=== PATIENT | female | born 1985 | race Caucasian/White ===

== ENCOUNTER 2017-08-11 21:10 | Outpatient (CLI) | payer OTHER ==
[2017-08-11] MEDS: LACTATED RINGER'S 1,000 ML IV ×2 (22:35→23:33)
[2017-08-11] MEDS ORDERED: LACTATED RINGER'S 500 ML IV (23:00)
[2017-08-12] MEDS: TERBUTALINE 1 MG/ML INJ SC (00:19)
== END 2017-08-12 01:30 | disposition home or self-care (01) ==
LOC: OBT 21:10 → L-D 21:12
DX: O62.9 Abnormality of forces of labor, unspecified (principal); Z3A.33 33 weeks gestation of pregnancy
CPT/HCPCS: 76818; 96360; 96361; 96372

== ENCOUNTER 2017-08-18 02:40 | Outpatient (CLI) | payer OTHER ==
[2017-08-18] MEDS: LACTATED RINGER'S 1,000 ML IV ×2 (03:58→05:49)
[2017-08-18] MEDS: TERBUTALINE 1 MG/ML INJ SC ×2 (04:23→05:04)
[2017-08-18 05:00] LABS: ADD UMIC NO; UR ASCORBIC ACID NEGATIVE (NEGATIVE); UR BACTERIA MODERATE /HPF (NONE SEEN); UR BILIRUBIN (Dip) NEGATIVE (NEGATIVE); UR BLOOD (Dip) NEGATIVE (NEGATIVE); UR CLARITY SLIGHTLY CLOUDY (CLEAR); UR COLOR YELLOW (YELLOW); UR GLUCOSE (Dip) NEGATIVE (NEGATIVE); UR KETONES (Dip) NEGATIVE (NEGATIVE); UR LEUKOCYTE ESTERASE (Dip) NEGATIVE Leu/ul (NEGATIVE); UR NITRITE (Dip) NEGATIVE (NEGATIVE); UR RBC 1 /HPF (0-5); UR SPECIFIC GRAVITY (Dip) 1.006 (1.003-1.030); UR SQUAMOUS EPITHELIAL CELL FEW /HPF (FEW); UR TOTAL PROTEIN (Dip) NEGATIVE (NEGATIVE); UR UROBILINOGEN (Dip) NEGATIVE (NEGATIVE); UR WBC 1 /HPF (0-5)
== END 2017-08-18 06:40 | disposition home or self-care (01) ==
LOC: OBT 02:40 → L-D 02:41 → OBT 06:40
DX: O62.9 Abnormality of forces of labor, unspecified (principal); Z3A.34 34 weeks gestation of pregnancy
CPT/HCPCS: 36415; 76818; 81001; 81003; 87086; 96360; 96361; 96372

== ENCOUNTER 2017-08-31 18:13 | Inpatient (IN) | payer OTHER ==
[2017-08-31] MEDS: LACTATED RINGER'S 1,000 ML IV ×3 (05:30→23:22)
[2017-08-31] MEDS: TERBUTALINE 1 MG/ML INJ SC (20:48)
[2017-08-31] MEDS: BETAMET NA PHOS/AC(6 MG/ML) 5ML INJ IM (20:49)
[2017-08-31 20:59] LABS: ADD UMIC YES; UR ASCORBIC ACID NEGATIVE (NEGATIVE); UR BACTERIA MANY /HPF (NONE SEEN); UR BILIRUBIN (Dip) NEGATIVE (NEGATIVE); UR BLOOD (Dip) NEGATIVE (NEGATIVE); UR BUDDING YEAST MODERATE /HPF (NONE SEEN); UR CLARITY CLOUDY (CLEAR); UR COLOR YELLOW (YELLOW); UR GLUCOSE (Dip) NEGATIVE (NEGATIVE); UR KETONES (Dip) TRACE mg/dL (NEGATIVE); UR LEUKOCYTE ESTERASE (Dip) 3+ Leu/ul (NEGATIVE); UR MUCUS FEW /HPF (NONE SEEN); UR NITRITE (Dip) NEGATIVE (NEGATIVE); UR RBC 6 /HPF (0-5); UR SPECIFIC GRAVITY (Dip) 1.015 (1.003-1.030); UR SQUAMOUS EPITHELIAL CELL MODERATE /HPF (FEW); UR TOTAL PROTEIN (Dip) NEGATIVE (NEGATIVE); UR UROBILINOGEN (Dip) NEGATIVE (NEGATIVE); UR WBC 18 /HPF (0-5)
[2017-08-31] MEDS: SOD CHLORIDE 0.9% 1,000 ML IV (22:27)
[2017-08-31] MEDS: CEFTRIAXONE 1 GM/50 ML (PMX) 50 ML IVPB (22:27)
[2017-08-31] MEDS ORDERED: LACTATED RINGER'S 1,000 ML IV (23:22)
[2017-08-31] MEDS ORDERED: OXYTOCIN 30 UNITS/LR 500 ML IV ×3 (23:30)
[2017-08-31] MEDS ORDERED: LIDOCAINE 1% (MPF) 30 ML INJ INJ (23:30)
[2017-08-31] MEDS ORDERED: IBUPROFEN 600 MG TAB PO (23:30)
[2017-08-31] MEDS ORDERED: METHYLERGONOVINE 0.2 MG INJ IM (23:30)
[2017-08-31] MEDS ORDERED: BUTORPHANOL 2 MG INJ IV (23:30)
[2017-08-31] MEDS ORDERED: MISOPROSTOL 200 MCG TAB PR (23:30)
[2017-08-31] MEDS ORDERED: CARBOPROST 250 MCG INJ IM (23:30)
[2017-09-01 00:34] LABS: ADD MAN DIFF? NO
[2017-09-01 00:37] LABS: WHITE BLOOD COUNT 11.2 10^3/ul (4.8-10.8)
[2017-09-01 00:37] LABS: BASOPHIL # 0.1 10^3/ul (0.0-0.1); BASOPHILS % 0.4 % (0.0-2.0); EOSINOPHILS # 0.2 10^3/ul (0.0-0.5); HEMATOCRIT 38.3 % (37.0-47.0); HEMOGLOBIN 13.3 g/dl (12.0-16.0); LYMPHOCYTES # 3.1 10^3/ul (0.8-2.9); LYMPHOCYTES % 27.6 % (15.0-51.0); MEAN CORPUSCULAR HEMOGLOBIN 31.6 pg (29.0-33.0); MEAN CORPUSCULAR HGB CONC 34.7 g/dl (32.0-37.0); MEAN PLATELET VOLUME 10.2 fl (7.4-10.4); MONOCYTE # 0.6 10^3/ul (0.3-0.9); MONOCYTES % 5.7 % (0.0-11.0); NEUTROPHIL # 7.2 10^3/ul (1.6-7.5); NEUTROPHILS % 63.9 % (39.0-77.0); PLATELET COUNT 347 10^3/UL (140-415); RED BLOOD COUNT 4.21 10^6/ul (4.20-5.40); RED CELL DISTRIBUTION WIDTH 13.1 % (11.5-14.5)
[2017-09-01 00:58] LABS: INR 0.94; PROTIME 12.7 Sec (11.9-14.9)
[2017-09-01 01:28] LABS: HEPATITIS B SURFACE ANTIGEN NEGATIVE (NEGATIVE)
[2017-09-01] MEDS: SOD CHLORIDE 0.9% 1,000 ML IV ×2 (06:30→19:08)
[2017-09-01] MEDS: LACTATED RINGER'S 1,000 ML IV (13:21)
[2017-09-01] MEDS: NIFEdipine 10 MG CAP PO ×2 (18:00→23:52)
[2017-09-01 19:44] LABS: RAPID PLASMA REAGIN NONREACTIVE (NR)
[2017-09-01] MEDS: BETAMET NA PHOS/AC(6 MG/ML) 5ML INJ IM (20:58)
[2017-09-01] MEDS ORDERED: CEFTRIAXONE 500 MG in SOD CHLORIDE 0.9% 50 ML IVPB (22:30)
[2017-09-01] MEDS ORDERED: CEFTRIAXONE 500 MG INJ IM (22:30)
[2017-09-01] MEDS: CEFTRIAXONE 1 GM/50 ML (PMX) 50 ML IVPB (23:37)
[2017-09-02] MEDS: SOD CHLORIDE 0.9% 1,000 ML IV ×2 (03:55→12:47)
[2017-09-02] MEDS: NIFEdipine 10 MG CAP PO ×2 (06:16→12:53)
== END 2017-09-02 17:43 | disposition home or self-care (01) | DRG 780 ==
LOC: OBT 18:13 → L-D 09-01 01:42 → OBT 23:17 → L-D 23:17
DX: O47.03 False labor before 37 completed weeks of gestation, third trimester (principal); Z3A.36 36 weeks gestation of pregnancy
CPT/HCPCS: 36415; 76815; 76818; 81001; 85025; 85610; 85730; 86592; 86850; 86900; 86901; 87086; 87340; 96360; 96372

== ENCOUNTER 2017-09-18 11:51 | Inpatient (IN) | payer OTHER ==
[2017-09-18] MEDS ORDERED: LIDOCAINE 1% (MPF) 30 ML INJ INJ (13:00)
[2017-09-18] MEDS ORDERED: MISOPROSTOL 200 MCG TAB PR (13:00)
[2017-09-18] MEDS ORDERED: IBUPROFEN 600 MG TAB PO (13:00)
[2017-09-18] MEDS ORDERED: CARBOPROST 250 MCG INJ IM (13:00)
[2017-09-18] MEDS ORDERED: OXYTOCIN 30 UNITS/LR 500 ML IV (13:00)
[2017-09-18] MEDS ORDERED: METHYLERGONOVINE 0.2 MG INJ IM (13:00)
[2017-09-18] MEDS ORDERED: BUTORPHANOL 2 MG INJ IV (13:00)
[2017-09-18] MEDS: LACTATED RINGER'S 1,000 ML IV* ×3 (13:18→17:24)
[2017-09-18 13:27] LABS: ADD MAN DIFF? NO
[2017-09-18 13:31] LABS: WHITE BLOOD COUNT 9.5 10^3/ul (4.8-10.8)
[2017-09-18 13:31] LABS: BASOPHIL # 0.1 10^3/ul (0.0-0.1); BASOPHILS % 0.5 % (0.0-2.0); EOSINOPHILS # 0.2 10^3/ul (0.0-0.5); EOSINOPHILS % 1.8 % (0.0-7.0); HEMOGLOBIN 13.7 g/dl (12.0-16.0); LYMPHOCYTES # 1.8 10^3/ul (0.8-2.9); LYMPHOCYTES % 19.2 % (15.0-51.0); MEAN CORPUSCULAR HGB CONC 34.3 g/dl (32.0-37.0); MEAN CORPUSCULAR VOLUME 90.5 fl (82.0-101.0); MONOCYTE # 0.6 10^3/ul (0.3-0.9); MONOCYTES % 6.5 % (0.0-11.0); NEUTROPHIL # 6.8 10^3/ul (1.6-7.5); NEUTROPHILS % 71.5 % (39.0-77.0); PLATELET COUNT 361 10^3/UL (140-415); RED BLOOD COUNT 4.42 10^6/ul (4.20-5.40); RED CELL DISTRIBUTION WIDTH 13.5 % (11.5-14.5)
[2017-09-18] MEDS ORDERED: FENTAnyl 2MCG/ML-ROPIV 0.2% 100 ML (13:35)
[2017-09-18 13:51] LABS: INR 0.92; PROTIME 12.4 Sec (11.9-14.9)
[2017-09-18 13:52] LABS: PARTIAL THROMBOPLASTIN TIME 28.1 Sec (25.0-35.0)
[2017-09-18] MEDS ORDERED: NALOXONE (0.4 MG/ML) INJ IV (14:30)
[2017-09-18] MEDS: FENTAnyl 2MCG/ML-ROPIV 0.2% 100 ML BAG EPI (20:13)
[2017-09-18] MEDS: MINERAL OIL LIGHT 10 ML VIAL TOP (20:30)
[2017-09-18 21:58] LABS: RAPID PLASMA REAGIN NONREACTIVE (NR)
[2017-09-18] MEDS: OXYTOCIN 30 UNITS/LR 500 ML IV ×2 (23:33→23:56)
[2017-09-19] MEDS ORDERED: OXYTOCIN 30 UNITS/LR 500 ML IV (01:30)
[2017-09-19] MEDS ORDERED: OXYCODONE/ASPIRIN (4.88/325) TAB PO ×2 (01:30)
[2017-09-19] MEDS ORDERED: MISOPROSTOL 200 MCG TAB PR (01:30)
[2017-09-19] MEDS ORDERED: LANOLIN 7 GM TUBE TOP (01:30)
[2017-09-19] MEDS ORDERED: METHYLERGONOVINE 0.2 MG INJ IM (01:30)
[2017-09-19] MEDS ORDERED: CARBOPROST 250 MCG INJ IM (01:30)
[2017-09-19] MEDS ORDERED: ZOLPIDEM 5 MG TAB PO (01:30)
[2017-09-19] MEDS ORDERED: BENZOCAINE 20% 56 ML SPRAY TOP (01:30)
[2017-09-19] MEDS: IBUPROFEN 600 MG TAB PO ×4 (06:33→23:42)
[2017-09-19] MEDS: WITCH HAZEL/GLYCERIN PAD PR (06:33)
[2017-09-19 08:52] LABS: ADD MAN DIFF? NO
[2017-09-19] MEDS: SENNA/DOCUSATE NA (8.6MG/50MG) TAB PO ×2 (09:00→21:41)
[2017-09-19 09:04] LABS: WHITE BLOOD COUNT 10.9 10^3/ul (4.8-10.8)
[2017-09-19 09:04] LABS: BASOPHIL # 0.1 10^3/ul (0.0-0.1); BASOPHILS % 0.5 % (0.0-2.0); EOSINOPHILS # 0.2 10^3/ul (0.0-0.5); EOSINOPHILS % 1.7 % (0.0-7.0); HEMATOCRIT 36.2 % (37.0-47.0); HEMOGLOBIN 12.1 g/dl (12.0-16.0); LYMPHOCYTES # 2.1 10^3/ul (0.8-2.9); LYMPHOCYTES % 19.3 % (15.0-51.0); MEAN CORPUSCULAR HEMOGLOBIN 30.4 pg (29.0-33.0); MEAN CORPUSCULAR HGB CONC 33.4 g/dl (32.0-37.0); MEAN PLATELET VOLUME 9.5 fl (7.4-10.4); MONOCYTE # 0.7 10^3/ul (0.3-0.9); MONOCYTES % 6.6 % (0.0-11.0); NEUTROPHIL # 7.8 10^3/ul (1.6-7.5); NEUTROPHILS % 71.5 % (39.0-77.0); PLATELET COUNT 303 10^3/UL (140-415); RED BLOOD COUNT 3.98 10^6/ul (4.20-5.40); RED CELL DISTRIBUTION WIDTH 13.2 % (11.5-14.5)
[2017-09-20] MEDS: IBUPROFEN 600 MG TAB PO ×2 (05:49→13:35)
[2017-09-20] MEDS: SENNA/DOCUSATE NA (8.6MG/50MG) TAB PO (09:00)
[2017-09-20] MEDS: DIPHTH/TET/ACEL PERTUSS (ADULT) 0.5 ML VIAL IM* (15:13)
== END 2017-09-20 18:55 | disposition home or self-care (01) | DRG 775 ==
LOC: OBT 11:51 → PP1 09-19 01:15 → L-D 11:51 → OBT 12:30 → L-D 12:30
PROVIDERS: Obstetrics & Gynecology
PROC: 10E0XZZ Delivery of Products of Conception, External Approach (ICD-10-PCS; principal; 2017-09-18)
PROC: 3E0234Z Introduction of Serum, Toxoid and Vaccine into Muscle, Percutaneous Approach (ICD-10-PCS; 2017-09-20)
DX: O80 Encounter for full-term uncomplicated delivery (principal); Z3A.38 38 weeks gestation of pregnancy; Z37.0 Single live birth; Z23 Encounter for immunization
CPT/HCPCS: 62319; 85025; 85610; 85730; 86592; 86850; 86900; 86901; 99464